=== PATIENT | male | born 1945 | race Caucasian/White ===

== ENCOUNTER 2017-04-19 18:44 | Emergency (ER) | payer MEDICARE, OTHER ==
[~2017-04-19] VITALS: Ht 170.2 cm; Wt 98.6 kg
[~2017-04-19 18:44] MED LIST: ASPI-110 PO; ATEN50TA PO; ATOR40TA16 PO; CEFT250T8 PO; CRAN1260; FINA5TAB2 PO; ICOS1CAP PO; MAGN500T4 PO; METF1000 PO; SERT-132 PO; TAMS0.4C4 PO; UROCTAB2 PO; VESI5TAB PO; [UNRECOGNIZED DRUG - CODE] PO
[2017-04-19 19:01] VITALS: BP 98/58; PULSE 89; RESP 22; TEMP 98.2; O2SAT 94
[2017-04-19 19:31] VITALS: BP 112/71; PULSE 91; RESP 18; TEMP 98.2; O2SAT 94
[2017-04-19] MEDS ORDERED: PROM25TA10 PO (19:39)
--- NOTE | 2017-04-19 19:39 | PD ---
HPI Chief Complaint: Cold / Flu Symptoms Time Seen by Provider: 19:33 Travel History International Travel<30 days: No Contact w/Intl Traveler<30days: No Traveled to known affect area: No History of Present Illness HPI The patient is a 71-year-old male that for 4 days has had a cough and low-grade fever. He does not have a fever here but states it got up to 102 at home. The cough is productive of white sputum. He denies any shortness of breath. He does not smoke, he has never smoked. He did have some nausea and vomiting yesterday. He was at the [facility] yesterday and was seen for these symptoms and given Augmentin, guaifenesin and Tessalon Perles. He has diabetes and his blood sugars are been running in the 150 range. PFSH Past Medical History Hx Anticoagulant Therapy: Yes (81 mg asa) Arthritis: Yes (BILATERAL KNEES.) Depression: Yes Cancer: Yes (colon) Cardiovascular Problems: Yes (HTN) High Cholesterol: Yes Chemotherapy: Yes (2014; COLON CA) Diabetes: Yes Diminished Hearing: No Endocrine: Yes Genitourinary: Yes Hypertension: Yes Immune Disorder: No Kidney Stones: Yes Musculoskeletal: Yes Neurologic: No Reproductive: No Respiratory: Yes Sickle Cell Disease: No Sleep Apnea: Yes (CPAP AT NIGHT.) Past Surgical History Abdominal Surgery: Yes (colon ca) Cardiac Surgery: No Eye Surgery: Yes (BILATERAL CATARACTS) Genitourinary Surgery: Yes (TURP) Thoracic Surgery: No Other Surgery: Yes (DEVIATED SEPTUM) Social History Alcohol Use: No Tobacco Use: No Substance Use: No Allergies-Medications (Allergen,Severity, Reaction): Coded Allergies: No Known Allergies (Unverified , 04/19/17) Reported Meds & Prescriptions Reported Meds & Active Scripts Active Reported Metformin (Metformin HCl) 1,000 Mg Tab 1,000 Mg PO BIDPC With meals Vesicare (Solifenacin) 5 Mg Tab 5 Mg PO DAILY Finasteride 5 Mg Tab 5 Mg PO DAILY Do not crush. Urocit-K 10 (Potassium Citrate (Alkalinizer)) 1,080 Mg Tab 10 Meq PO TID Cranberry Fruit Concentrate (Cranberry (Vaccinium Macrocarpon)) 12,600 Mg Cap Delta D3 (Cholecalciferol) 400 Unit Tab 5,000 Units PO DAILY Aspirin 81 (Aspirin) 81 Mg Tabdr 81 Mg PO DAILY Vascepa (Icosapent) 1 Gm Cap 2 Gm PO BID Atenolol 50 Mg Tab 50 Mg PO DAILY Tamsulosin (Tamsulosin HCl) 0.4 Mg Cap 0.4 Mg PO HS Sertraline (Sertraline HCl) 50 Mg Tab 50 Mg PO DAILY Atorvastatin (Atorvastatin Calcium) 40 Mg Tab 40 Mg PO HS Review of Systems Except as stated in HPI: all other systems reviewed are Neg Physical Exam Narrative GENERAL: The patient is obese, alert, oriented 3 in no respiratory distress. His vital signs show respiratory rate of 22 and oximetry 94% but otherwise normal. He is in no respiratory distress. SKIN: Focused skin assessment warm/dry. HEAD: Atraumatic. Normocephalic. EYES: Pupils equal and round. No scleral icterus. No injection or drainage. ENT: No nasal bleeding or discharge. Mucous membranes pink and moist. The throat is clear and the tympanic membranes are clear. NECK: Trachea midline. No JVD. There is no meningismus present. CARDIOVASCULAR: Regular rate and rhythm. No murmur appreciated. RESPIRATORY: No accessory muscle use. Clear to auscultation. Breath sounds equal bilaterally. GASTROINTESTINAL: Abdomen soft, non-tender, nondistended. Hepatic and splenic margins not palpable. The patient has an incisional hernia which is easily reduced. No guarding or rebound is present. MUSCULOSKELETAL: No obvious deformities. No clubbing. No cyanosis. No edema. NEUROLOGICAL: Awake and alert. No obvious cranial nerve deficits. Motor grossly within normal limits. Normal speech. PSYCHIATRIC: Appropriate mood and affect; insight and judgment normal. Data Data Last Documented VS Vital Signs Date Time Temp Pulse Resp B/P Pulse Ox O2 Delivery O2 Flow Rate FiO2 04/19/17 19:31 91 18 94 Room Air 04/19/17 19:01 98.2 98/58 [facility] Medical Decision Making Medical Screen Exam Complete: Yes Emergency Medical Condition: Yes Medical Record Reviewed: Yes Differential Diagnosis Viral upper respiratory infection, pneumonia, bronchitis, ear infection, pharyngitis, intestinal infection, gastroenteritis, flu syndrome Narrative Course The patient appears to have a viral upper respiratory infection. He does have some nausea and vomiting and will be prescribed Phenergan. The [facility] be [facility] as well. Diagnosis Primary Impression: Viral upper respiratory infection Additional Instructions: The Phenergan is taken one tablet every 6 hours as needed for nausea. It can make you slightly sleepy but may help the cough. Med/Other Pt SpecificInfo: Prescription(s) given Scripts Promethazine (Phenergan)25 Mg Ifyxps58 Mg PO Q6H PRN (NAUSEA OR VOMITING) #30 TAB Ref 0 Prov:Joshua Lopez MD 04/19/17 Disposition: 01 DISCHARGE HOME Condition: Stable Joshua Lopez MD April 19, 2017 19:39
== END 2017-04-19 20:24 | disposition home or self-care (01) ==
LOC: PHED 18:44
DX: J06.9 Acute upper respiratory infection, unspecified (principal); R11.2 Nausea with vomiting, unspecified; E66.9 Obesity, unspecified; I10 Essential (primary) hypertension; E11.9 Type 2 diabetes mellitus without complications; M19.90 Unspecified osteoarthritis, unspecified site; E78.00 Pure hypercholesterolemia, unspecified; G47.30 Sleep apnea, unspecified; Z85.038 Personal history of other malignant neoplasm of large intestine
CPT/HCPCS: 99283

== ENCOUNTER 2017-10-01 09:37 | Emergency (ER) | payer MEDICARE, OTHER ==
[~2017-10-01] VITALS: Ht 170.2 cm; Wt 103.0 kg
[~2017-10-01 09:37] MED LIST changes: -ASPI-110 PO; +ASPI1TAB57 PO; -CEFT250T8 PO; -CRAN1260; +CRAN1260 PO; -MAGN500T4 PO; +PROM25TA10 PO; -VESI5TAB PO; +VESI5TAB2 PO
[2017-10-01 09:41] VITALS: BP 202/99; PULSE 79; RESP 16; TEMP 97.8; O2SAT 93
[2017-10-01 09:57] LABS: BLOOD, URINE MOD (NEG); GLUCOSE,URINE 1000 OR GREATER mg/dL (NEG); KETONE, URINE NEG (NEG); NITRITE,URINE NEG (NEG); PH, URINE 5.5 (5.0-8.5)
[2017-10-01 10:00] LABS: METHOD OF COLLECTION CLEAN CATCH; URINE COLOR YELLOW (YELLW/STRAW)
[2017-10-01 10:02] LABS: COMMENT (UR) CULTURE INDICATED; CULTURE IF INDICATED CULTURE INDICATED; RBC, URINE 15-19 /hpf (0-3); SQUAMOUS EPITHELIAL CELL URINE 0-5 /hpf (0-5)
[2017-10-01] MEDS ORDERED: LANTINJ SQ (10:18)
[2017-10-01] MEDS ORDERED: LISI-515 PO (10:18)
--- NOTE | 2017-10-01 10:20 | PD ---
HPI Chief Complaint: Complaint Time Seen by Provider: 09:48 Travel History International Travel<30 days: No Contact w/Intl Traveler<30days: No Traveled to known affect area: No History of Present Illness HPI 72-year-old male arrives complaining of dysuria and urinary frequency as well as pruritus about the glands and the scrotum. He reports a history of chronic recurrent UTIs and believes today's presentation is essentially the same thing. He has been taking cefuroxime for UTI evidently to no avail. He denies fever nausea vomiting. Burning dysuria and frequency began yesterday with the pruritus having started yesterday. Moderate severity without modifying factor. PFSH Past Medical History Hx Anticoagulant Therapy: Yes (BABY ASA DAILY) Arthritis: Yes (BILATERAL KNEES) Depression: Yes Cancer: Yes (colon) Cardiovascular Problems: Yes (HTN) High Cholesterol: Yes Chemotherapy: Yes (2015; COLON CA) Diabetes: Yes Patient Takes Glucophage: Yes (METFORMIN) Diminished Hearing: No Endocrine: Yes Gastrointestinal Disorders: Yes (HERNIA) Genitourinary: Yes Hypertension: Yes Immune Disorder: No Implanted Vascular Access Dvce: No Kidney Stones: Yes Musculoskeletal: Yes Neurologic: No Reproductive: No Respiratory: Yes Immunizations Current: Yes Sickle Cell Disease: No Sleep Apnea: Yes (CPAP AT NIGHT.) Past Surgical History Abdominal Surgery: Yes (colon ca) Cardiac Surgery: No Eye Surgery: Yes (BILATERAL CATARACTS) Genitourinary Surgery: Yes (TURP) Joint Replacement: Yes (RIGHT KNEE TOTAL ) Neurologic Surgery: No Thoracic Surgery: No Other Surgery: Yes (DEVIATED SEPTUM) Social History Alcohol Use: No Tobacco Use: No (NEVER) Substance Use: No Allergies-Medications (Allergen,Severity, Reaction): Coded Allergies: No Known Allergies (Unverified Adverse Reaction, Unknown, 10/01/17) Reported Meds & Prescriptions Reported Meds & Active Scripts Active Diflucan (Fluconazole) 150 Mg Tab 150 Mg PO ONCE Macrobid (Nitrofurantoin Monoh/Nitrofur Macro) 100 Mg Cap 100 Mg PO BID 5 Days Reported Cefuroxime (Cefuroxime Axetil) 500 Mg Tab 500 Mg PO BID Venlafaxine ER 24 HR (Venlafaxine HCl) 75 Mg Tab 75 Mg PO DAILY Tanzeum 4-Pack Inj (Albiglutide) 50 Mg Pfpen 50 Mg SQ Q7D Probiotic (Lactobacillus Acidophilus) 10 Billion Cell Cap 1 Cap PO TIDAC Oxybutynin ER 24 HR (Oxybutynin Chloride) 10 Mg Tab 10 Mg PO HS Myrbetriq (Mirabegron) 50 Mg Tab 50 Mg PO DAILY Magnesium Oxide 500 Mg Tab 500 Mg PO WEEKLY Lisinopril 20 Mg Tab 20 Mg PO HS Lantus Solostar Pen Inj (Insulin Glargine) 300 Unit/3 Ml Pen 55 Units SQ HS Metformin (Metformin HCl) 1,000 Mg Tab 1,000 Mg PO BIDPC With meals Finasteride 5 Mg Tab 5 Mg PO DAILY Do not crush. Cranberry Fruit Concentrate (Cranberry (Vaccinium Macrocarpon)) 12,600 Mg Cap 4, 200 Mg PO DAILY Delta D3 (Cholecalciferol) 400 Unit Tab 5,000 Units PO DAILY Aspirin 81 (Aspirin) 81 Mg Tabdr 81 Mg PO DAILY Vascepa (Icosapent) 1 Gm Cap 2 Gm PO BID Atenolol 50 Mg Tab 50 Mg PO DAILY Sertraline (Sertraline HCl) 50 Mg Tab 50 Mg PO DAILY Atorvastatin (Atorvastatin Calcium) 40 Mg Tab 40 Mg PO HS Review of Systems Except as stated in HPI: all other systems reviewed are Neg General / Constitutional: No: Fever Physical Exam Narrative GENERAL: 72-year-old male well-nourished well-developed GENITOURINARY: Minimal white discharge about the glands in the uncircumcised penis. Scrotum unremarkable. SKIN: Focused skin assessment warm/dry. HEAD: Atraumatic. Normocephalic. EYES: Pupils equal and round. No scleral icterus. No injection or drainage. NECK: Trachea midline. No JVD. CARDIOVASCULAR: Regular rate and rhythm. No murmur appreciated. RESPIRATORY: No accessory muscle use. Clear to auscultation. Breath sounds equal bilaterally. GASTROINTESTINAL: Abdomen soft, non-tender, nondistended. Hepatic and splenic margins not palpable. MUSCULOSKELETAL: No obvious deformities. No clubbing. No cyanosis. No edema. NEUROLOGICAL: Awake and alert. No obvious cranial nerve deficits. Motor grossly within normal limits. Normal speech. PSYCHIATRIC: Appropriate mood and affect; insight and judgment normal. Data Data Last Documented VS Vital Signs Date Time Temp Pulse Resp B/P (MAP) Pulse Ox O2 Delivery O2 Flow Rate FiO2 10/01/17 11:52 78 18 143/75 (97) 97 10/01/17 09:41 97.8 VS reviewed Orders Orders Urinalysis - C+S If Indicated (10/01/17 09:46) Urine Culture (10/01/17 09:47) Ed Discharge Order (10/01/17 10:20) Ceftriaxone Inj (Rocephin Inj) (10/01/17 10:30) Lidocaine 1% Inj (50 Ml) (Xylocaine 1% I (10/01/17 10:30) Nitrofurantoin Monohyd Macrocr (Macrobid (10/01/17 10:30) Labs Laboratory Tests Test 10/01/17 09:47 Urine Collection Type CLEAN CATCH Urine Color YELLOW Urine Turbidity SLIGHT Urine pH 5.5 Urine Specific [place] 1.026 Urine Protein TRACE mg/dL Urine Glucose (UA) 1000 OR GREATER mg/dL Urine Ketones NEG mg/dL Urine Occult Blood MOD Urine Nitrite NEG Urine Bilirubin NEG Urine Leukocyte Esterase SMALL Urine RBC 15-19 /hpf Urine WBC 25-49 /hpf Urine WBC Clumps FEW Urine Squamous Epithelial Cells 0-5 /hpf Microscopic Urinalysis Comment CULTURE INDICATED Urine Collection Time 09:47 [facility] Medical Decision Making Medical Screen Exam Complete: Yes Emergency Medical Condition: Yes Medical Record Reviewed: Yes Differential Diagnosis UTI, balanitis, candidiasis Narrative Course Rocephin administered IM Prior microbiology isolate show sensitivity to Macrobid as well as cefuroxime. We'll give the patient Macrobid prescription and a shot of Rocephin IM here hopefully this will sterilize the urinary confer some relief. There could've been an element of candidiasis/balanitis and Diflucan was prescribed as well. Patient has follow-up with Dr. Tamez of urology and will follow up there. He is ready for discharge. Diagnosis Primary Impression: Complicated UTI (urinary tract infection) Additional Impression: Candidiasis of penis Referrals: DR TAMEZ Med/Other Pt SpecificInfo: Prescription(s) given Scripts Fluconazole (Diflucan) 150 Mg Tab 150 MG PO ONCE for Infection, #1 TAB 0 Refills Prov: López Ibanez MD 10/01/17 Nitrofurantoin Monohydrate Macrocrystals (Macrobid) 100 Mg Cap 100 MG PO BID for Infection for 5 Days, #10 CAP 0 Refills Prov: López Ibanez MD 11/12/17 Disposition: 01 DISCHARGE HOME Condition: Stable López Ibanez MD Oct 01, 2017 10:20
[2017-10-01] MEDS ORDERED: OXYB10TA PO (10:22)
[2017-10-01] MEDS ORDERED: LACTCAP8 PO (10:22)
[2017-10-01] MEDS ORDERED: MAGN500T2 PO (10:22)
[2017-10-01] MEDS ORDERED: MIRA50TA PO (10:22)
[2017-10-01] MEDS ORDERED: ALBI1INJ2 SQ (10:25)
[2017-10-01] MEDS ORDERED: VENL75TA2 PO (10:25)
[2017-10-01] MEDS ORDERED: CEFU1TAB20 PO (10:25)
[2017-10-01] MEDS ORDERED: LIDOCAINE HCL 1% 50 ML VIAL XX ONE (10:30)
[2017-10-01] MEDS ORDERED: NITROFURANTOIN MONOHYD MACROCR 100 MG CAP PO ONE (10:30)
[2017-10-01] MEDS ORDERED: MACR100C2 PO (10:32)
[2017-10-01] MEDS ORDERED: DIFL150T PO (10:32)
[2017-10-01 11:52] VITALS: BP 143/75
== END 2017-10-01 11:53 | disposition home or self-care (01) ==
LOC: PHED 09:37
DX: B37.49 Other urogenital candidiasis (principal)
CPT/HCPCS: 81001; 87086; 96374; 99285; J0696

== ENCOUNTER 2017-10-03 23:31 | Emergency (ER) | payer MEDICARE, OTHER ==
[~2017-10-03] VITALS: Ht 170.2 cm; Wt 103.3 kg
[~2017-10-03 23:31] MED LIST changes: +ALBI1INJ2 SQ; +CEFU1TAB20 PO; +DIFL150T PO; +LACTCAP8 PO; +LANTINJ SQ; +LISI-515 PO; +MACR100C2 PO; +MAGN500T2 PO; +MIRA50TA PO; +OXYB10TA PO; -PROM25TA10 PO; -TAMS0.4C4 PO; -UROCTAB2 PO; +VENL75TA2 PO; -VESI5TAB2 PO
[2017-10-03 23:42] VITALS: BP 184/91; PULSE 92; RESP 20; TEMP 98.6; O2SAT 94
[2017-10-04 00:02] VITALS: BP 184/91; PULSE 92; RESP 20; TEMP 98.6; O2SAT 98
--- NOTE | 2017-10-04 01:39 | PD ---
HPI Chief Complaint: Complaint Time Seen by Provider: 00:19 Travel History International Travel<30 days: No Contact w/Intl Traveler<30days: No Traveled to known affect area: No History of Present Illness HPI Patient is a 72-year-old man coming in complaining that he thinks from his urine came what he thinks is a warm. He has a history of chronic UTIs is currently on Bactrim for a UTI and he is been seen recently by urology. He has no fever he has no hematuria he just saw the strange thing coming out of his with his urine. Patient denies fevers no chills was in the ER recently for the same problem but today he comes back because she sees a dark reddish pain which he thought was floating like a worm. No other complaints at this time PFSH Past Medical History Hx Anticoagulant Therapy: Yes Arthritis: Yes (BILATERAL KNEES) Depression: Yes Cancer: Yes (colon) Cardiovascular Problems: Yes (HTN) High Cholesterol: Yes Chemotherapy: Yes (2015; COLON CA) Diabetes: Yes Patient Takes Glucophage: No Diminished Hearing: No Endocrine: Yes Gastrointestinal Disorders: Yes (HERNIA) Genitourinary: Yes Hypertension: Yes Immune Disorder: No Implanted Vascular Access Dvce: No Kidney Stones: Yes Musculoskeletal: Yes Neurologic: No Reproductive: No Respiratory: Yes Immunizations Current: Yes Sickle Cell Disease: No Sleep Apnea: Yes (CPAP AT NIGHT.) Past Surgical History Abdominal Surgery: Yes (colon ca) Cardiac Surgery: No Eye Surgery: Yes (BILATERAL CATARACTS) Genitourinary Surgery: Yes (TURP) Joint Replacement: Yes (RIGHT KNEE TOTAL ) Neurologic Surgery: No Thoracic Surgery: No Other Surgery: Yes (DEVIATED SEPTUM) Social History Alcohol Use: No Tobacco Use: No (NEVER) Substance Use: No Allergies-Medications (Allergen,Severity, Reaction): Coded Allergies: No Known Allergies (Verified Adverse Reaction, Unknown, 10/04/17) Reported Meds & Prescriptions Reported Meds & Active Scripts Active Diflucan (Fluconazole) 150 Mg Tab 150 Mg PO ONCE Macrobid (Nitrofurantoin Monoh/Nitrofur Macro) 100 Mg Cap 100 Mg PO BID 5 Days Reported Cefuroxime (Cefuroxime Axetil) 500 Mg Tab 500 Mg PO BID Venlafaxine ER 24 HR (Venlafaxine HCl) 75 Mg Tab 75 Mg PO DAILY Tanzeum 4-Pack Inj (Albiglutide) 50 Mg Pfpen 50 Mg SQ Q7D Probiotic (Lactobacillus Acidophilus) 10 Billion Cell Cap 1 Cap PO TIDAC Oxybutynin ER 24 HR (Oxybutynin Chloride) 10 Mg Tab 10 Mg PO HS Myrbetriq (Mirabegron) 50 Mg Tab 50 Mg PO DAILY Magnesium Oxide 500 Mg Tab 500 Mg PO WEEKLY Lisinopril 20 Mg Tab 20 Mg PO HS Lantus Solostar Pen Inj (Insulin Glargine) 300 Unit/3 Ml Pen 55 Units SQ HS Metformin (Metformin HCl) 1,000 Mg Tab 1,000 Mg PO BIDPC With meals Finasteride 5 Mg Tab 5 Mg PO DAILY Do not crush. Cranberry Fruit Concentrate (Cranberry (Vaccinium Macrocarpon)) 12,600 Mg Cap 4, 200 Mg PO DAILY Delta D3 (Cholecalciferol) 400 Unit Tab 5,000 Units PO DAILY Aspirin 81 (Aspirin) 81 Mg Tabdr 81 Mg PO DAILY Vascepa (Icosapent) 1 Gm Cap 2 Gm PO BID Atenolol 50 Mg Tab 50 Mg PO DAILY Sertraline (Sertraline HCl) 50 Mg Tab 50 Mg PO DAILY Atorvastatin (Atorvastatin Calcium) 40 Mg Tab 40 Mg PO HS Review of Systems Except as stated in HPI: all other systems reviewed are Neg Physical Exam Narrative GENERAL: Nontoxic afebrile alert and oriented 3 SKIN: Warm and dry. HEAD: Atraumatic. Normocephalic. EYES: Pupils equal and round. No scleral icterus. No injection or drainage. ENT: No nasal bleeding or discharge. Mucous membranes pink and moist. NECK: Trachea midline. No JVD. CARDIOVASCULAR: Regular rate and rhythm. RESPIRATORY: No accessory muscle use. Clear to auscultation. Breath sounds equal bilaterally. GASTROINTESTINAL: Abdomen soft, non-tender, nondistended. Hepatic and splenic margins not palpable. MUSCULOSKELETAL: Extremities without clubbing, cyanosis, or edema. No obvious deformities. NEUROLOGICAL: Awake and alert. No obvious cranial nerve deficits. Motor grossly within normal limits. Five out of 5 muscle strength in the arms and legs. Normal speech. PSYCHIATRIC: Appropriate mood and affect; insight and judgment normal. Data Data Last Documented VS Vital Signs Date Time Temp Pulse Resp B/P (MAP) Pulse Ox O2 Delivery O2 Flow Rate FiO2 10/04/17 02:02 81 18 157/92 (113) 95 10/04/17 00:02 98.6 Orders Orders Urinalysis - C+S If Indicated (10/04/17 01:12) Ed Discharge Order (10/04/17 01:45) Urine Culture (10/04/17 01:15) Labs Laboratory Tests Test 10/04/17 01:15 Urine Color YELLOW Urine Turbidity SLIGHT Urine pH 5.5 Urine Specific [place] 1.026 Urine Protein NEG mg/dL Urine Glucose (UA) 1000 OR GREATER mg/dL Urine Ketones NEG mg/dL Urine Occult Blood LARGE Urine Nitrite NEG Urine Bilirubin NEG Urine Leukocyte Esterase NEG Urine RBC 25-49 /hpf Urine WBC 6-8 /hpf Urine WBC Clumps OCC Urine Squamous Epithelial Cells 0-5 /hpf Microscopic Urinalysis Comment CULTURE INDICATED MDM Medical Decision Making Medical Screen Exam Complete: Yes Emergency Medical Condition: Yes Differential Diagnosis bladder blood clot vs infectious parasite very low on differential as pt has not traveled out of country in years Narrative Course Patient comes in with urine that is clear and yellow with just a small reddish what looks to be a blood clot. i send it to the labs to look at the microscope but it is obvious it is not a worm. That was the patient's only concern discharge him on the follow-up with urology and continue the Bactrim that he is on for UTI. Diagnosis Primary Impression: Blood clot in bladder Patient Instructions: General Instructions, Hematuria (ED) Disposition: 01 DISCHARGE HOME Condition: Juan Daniel Torres MD Oct 04, 2017 01:39
[2017-10-04 01:48] LABS: BLOOD, URINE LARGE (NEG); GLUCOSE,URINE 1000 OR GREATER mg/dL (NEG); KETONE, URINE NEG (NEG); NITRITE,URINE NEG (NEG); PH, URINE 5.5 (5.0-8.5)
[2017-10-04 01:55] LABS: URINE COLOR YELLOW (YELLW/STRAW)
[2017-10-04 01:57] LABS: COMMENT (UR) CULTURE INDICATED; CULTURE IF INDICATED CULTURE INDICATED; SQUAMOUS EPITHELIAL CELL URINE 0-5 /hpf (0-5)
[2017-10-04 02:02] VITALS: BP 157/92
== END 2017-10-04 02:07 | disposition home or self-care (01) ==
LOC: PHED 23:31
DX: N32.89 Other specified disorders of bladder (principal); R82.71 Bacteriuria; E78.00 Pure hypercholesterolemia, unspecified; E11.9 Type 2 diabetes mellitus without complications; I10 Essential (primary) hypertension; Z79.84 Long term (current) use of oral hypoglycemic drugs; Z87.440 Personal history of urinary (tract) infections; Z85.038 Personal history of other malignant neoplasm of large intestine
CPT/HCPCS: 81001; 87086; 99283

== ENCOUNTER 2018-04-22 13:51 | Emergency (ER) | payer MEDICARE, OTHER ==
[~2018-04-22] VITALS: Ht 152.4 cm; Wt 99.0 kg
[2018-04-22 13:58] VITALS: BP 173/98; PULSE 97; RESP 16; TEMP 98.2; O2SAT 95
[2018-04-22] MEDS ORDERED: CORE25TA PO (14:10)
[2018-04-22] MEDS ORDERED: AZIT250T3 PO (14:52)
[2018-04-22] MEDS ORDERED: VENTAER INH (14:52)
[2018-04-22] MEDS ORDERED: PRED10 PO (14:52)
--- NOTE | 2018-04-22 15:13 | PD ---
HPI Chief Complaint: Cold / Flu Symptoms Time Seen by Provider: 14:15 Travel History International Travel<30 days: No Contact w/Intl Traveler<30days: No Traveled to known affect area: No History of Present Illness HPI 72-year-old male presents emergency department for evaluation of nonproductive cough and mild sore throat that is been persistent for 1 week. Says he had a fever on Monday but this has since resolved. He denies shortness of breath or chest pain. Denies weakness. Denies nausea vomiting or diarrhea. He comes in today for evaluation as he is concerned about developing pneumonia. He denies drooling or dysphagia. She denies feeling of fullness in his throat. PFSH Past Medical History Hx Anticoagulant Therapy: Yes Arthritis: Yes (BILATERAL KNEES) Depression: Yes Cancer: Yes (colon) Cardiovascular Problems: Yes (HTN) High Cholesterol: Yes Chemotherapy: Yes (2015; COLON CA) Diabetes: Yes Patient Takes Glucophage: Yes Diminished Hearing: No Endocrine: Yes Gastrointestinal Disorders: Yes (HERNIA) Genitourinary: Yes Hypertension: Yes Immune Disorder: No Implanted Vascular Access Dvce: No Kidney Stones: Yes Musculoskeletal: Yes Neurologic: No Reproductive: No Respiratory: Yes Immunizations Current: Yes Sickle Cell Disease: No Sleep Apnea: Yes (CPAP AT NIGHT.) Influenza Vaccination: Yes ?: Not Past Surgical History Abdominal Surgery: Yes (colon ca) Cardiac Surgery: No Eye Surgery: Yes (BILATERAL CATARACTS) Genitourinary Surgery: Yes (TURP, interstem implant) Joint Replacement: Yes (RIGHT KNEE TOTAL ) Neurologic Surgery: No Thoracic Surgery: No Other Surgery: Yes (DEVIATED SEPTUM) Social History Alcohol Use: No Tobacco Use: No (NEVER) Substance Use: No Allergies-Medications (Allergen,Severity, Reaction): Coded Allergies: No Known Allergies (Verified Adverse Reaction, Unknown, 04/22/18) Reported Meds & Prescriptions Reported Meds & Active Scripts Active Prednisone 10 Mg Tab 10 Mg PO DAILY 5 Days Ventolin Hfa 18 GM Inh (Albuterol Sulfate) 90 Mcg/Act Aer 2 Puff INH Q4-6H PRN 7 Days Azithromycin 250 Mg Tab 250 Mg PO DIRECTED Take 2 tabs (500 mg) on day 1 then 1 tab daily x 4 days. Reported Coreg (Carvedilol) 25 Mg Tab 25 Mg PO BID Venlafaxine ER 24 HR (Venlafaxine HCl) 75 Mg Tab 75 Mg PO DAILY Tanzeum 4-Pack Inj (Albiglutide) 50 Mg Pfpen 50 Mg SQ Q7D Probiotic (Lactobacillus Acidophilus) 10 Billion Cell Cap 1 Cap PO TIDAC Oxybutynin ER 24 HR (Oxybutynin Chloride) 10 Mg Tab 10 Mg PO HS Magnesium Oxide 500 Mg Tab 500 Mg PO WEEKLY Lisinopril 20 Mg Tab 20 Mg PO HS Lantus Solostar Pen Inj (Insulin Glargine) 300 Unit/3 Ml Pen 55 Units SQ HS Metformin (Metformin HCl) 1,000 Mg Tab 1,000 Mg PO BIDPC With meals Finasteride 5 Mg Tab 5 Mg PO DAILY Do not crush. Cranberry Fruit Concentrate (Cranberry (Vaccinium Macrocarpon)) 12,600 Mg Cap 4, 200 Mg PO DAILY Delta D3 (Cholecalciferol) 400 Unit Tab 5,000 Units PO DAILY Vascepa (Icosapent) 1 Gm Cap 2 Gm PO BID Review of Systems Except as stated in HPI: all other systems reviewed are Neg Physical Exam Narrative GENERAL: Well-nourished, well-developed patient, in NAD SKIN: Focused skin assessment warm/dry. No rashes or lesions. HEAD: Normocephalic. Atraumatic. EYES: No scleral icterus. No injection or drainage. PERRLA, EOMI THROAT: No pharyngeal injection, exudates, or tonsillar hypertrophy. Airway is patent. NECK: Supple, trachea midline. No JVD or lymphadenopathy. No meningismus. CARDIOVASCULAR: Regular rate and rhythm without murmurs, gallops, or rubs. RESPIRATORY: Breath sounds equal bilaterally. No accessory muscle use. Diffuse expiratory rhonchi, scant wheezing. MUSCULOSKELETAL: No cyanosis, or edema. BACK: Nontender without obvious deformity. No CVA tenderness. Data Data Last Documented VS Vital Signs Date Time Temp Pulse Resp B/P (MAP) Pulse Ox O2 Delivery O2 Flow Rate FiO2 04/22/18 14:10 95 04/22/18 13:58 98.2 97 16 173/98 (123) Orders Orders Ed Discharge Order (04/22/18 15:14) MDM Medical Decision Making Medical Screen Exam Complete: Yes Emergency Medical Condition: Yes Differential Diagnosis influenza, URI, pneumonia, bronchitis, pneumonitis, bronchospasm Narrative Course 72-year-old male presents emergency department evaluation of cough, congestion and sore throat that has been present for approximately 1 week. I initially ordered a chest x-ray however, the x-ray system went down the hospital. I would likely treat this patient regardless of the findings on chest x-ray today. Patient be discharged with prednisone, albuterol, azithromycin. His strongly advised to follow-up with his primary care physician within 2-3 days. Return for worsening or persistent symptoms. Diagnosis Primary Impression: Bronchitis Referrals: Primary Care Physician Additional Instructions: You may use a drop of honey and lemon in a cup of warm water to soothe your cough. (If you are greater than 1 year old ) Ensure good hydration and a nutritious diet. Note that viral infection symptoms may last for several weeks if you have a viral illness. Follow up with your primary physician within 2-3 days. Return to the ED for worsening or persistent symptoms. Scripts Prednisone (Prednisone) 10 Mg Tab 10 MG PO DAILY for 5 Days, #5 TAB 0 Refills Prov: Luly Bailey DO 04/22/18 Albuterol 18 GM Inh (Ventolin Hfa 18 GM Inh) 90 Mcg/Act Aer 2 PUFF INH Q4-6H Y for SHORTNESS OF BREATH for 7 Days, #1 INHALER 0 Refills Prov: Luly Bailey DO 04/22/18 Azithromycin (Azithromycin) 250 Mg Tab 250 MG PO DIRECTED for Infection, #6 TAB 0 Refills Take 2 tabs (500 mg) on day 1 then 1 tab daily x 4 days. Prov: Luly Bailey DO 04/22/18 Disposition: 01 DISCHARGE HOME Condition: Stable Bailee Brown Apr 22, 2018 15:13
== END 2018-04-22 15:19 | disposition home or self-care (01) ==
LOC: PHEFT 13:51
DX: J40 Bronchitis, not specified as acute or chronic (principal); I10 Essential (primary) hypertension; E78.00 Pure hypercholesterolemia, unspecified; E11.9 Type 2 diabetes mellitus without complications; F32.9 Major depressive disorder, single episode, unspecified; M17.0 Bilateral primary osteoarthritis of knee; G47.30 Sleep apnea, unspecified; Z79.4 Long term (current) use of insulin; Z87.442 Personal history of urinary calculi
CPT/HCPCS: 99283